=== PATIENT | male | born 1960 | race Caucasian/White ===

== ENCOUNTER 2017-01-10 11:01 | Emergency (ER) | payer MEDICAID ==
[2017-01-10] MEDS ORDERED: methylPREDNISolone Sodium Succinate 125 MG/2 ML SDV IVPUSH ONE (11:57)
[2017-01-10] MEDS ORDERED: diphenhydrAMINE 50 MG/ML SDV IVPUSH ONE (11:57)
--- NOTE | 2017-01-10 12:07 | EDM.PDOC ---
ED HPI GENERAL MEDICAL PROBLEM - General Chief Complaint: Allergic Reaction Stated Complaint: RED ECHEVARRIA & ITCHY ALL OVER Time Seen by Provider: 01/10/17 11:50 Source of Information: Reports: Patient, Family History Limitations: Reports: No Limitations - History of Present Illness INITIAL COMMENTS - FREE TEXT/NARRATIVE: 56-year-old male who is developing some lesions on his right arm last night, now has widespread erythematous hive-like lesions on his extremities and trunk. There are itchy but not painful. He has no history of similar problems, no new medications or foods. No respiratory symptoms, no recent illness. Onset: Sudden (Started 12 hours ago) - Related Data Allergies Allergy/AdvReac Type Severity Reaction Status Date / Time No Known Allergies Allergy Verified 07/31/15 17:03 Home Meds: Home Meds NK [No Known Home Meds] 07/31/15 [History] Past Medical History - Past Health History Medical/Surgical History: Denies Medical/Surgical History - Past Surgical History GI Surgical History: Reports: Other (See Below) Social & Family History - Tobacco Use Smoking Status *Q: Unknown Ever Smoked Years of Tobacco use: 20 Packs/Tins Daily: 1 - Alcohol Use Days Per Week of Alcohol Use: 1 Number of Drinks Per Day: 6 Total Drinks Per Week: 6 - Recreational Drug Use Recreational Drug Use: No ED ROS ALLERGIC REACTION - Review of Systems Review Of Systems: See Below Constitutional: Denies: Fever, Chills HEENT: Reports: No Symptoms Respiratory: Denies: Shortness of Breath, Wheezing Cardiovascular: Denies: Chest Pain GI/Abdominal: Denies: Nausea, Vomiting Skin: Reports: Rash Neurological: Denies: Headache Psychiatric: Reports: No Symptoms ED EXAM GENERAL NO PERIP PULSE - Physical Exam Exam: See Below Exam Limited By: No Limitations General Appearance: Alert, No Apparent Distress Throat/Mouth: Normal Inspection Respiratory/Chest: No Respiratory Distress, Lungs Clear Cardiovascular: Regular Rate, Rhythm Neurological: Alert, Oriented Skin Exam: Other (Patient has widespread erythematous slightly raised blanching lesions on his extremities and trunk) Course - Vital Signs Last Recorded V/S: Last Vital Signs Temp 97.5 F 01/10/17 13:02 Pulse 78 01/10/17 12:49 Resp 14 01/10/17 12:49 BP 126/84 01/10/17 12:49 Pulse Ox 95 01/10/17 12:49 - Orders/Labs/Meds Meds: Medications Discontinued Medications Generic Name Dose Route Start Last Admin Trade Name Keren PRN Reason Stop Dose Admin Diphenhydramine HCl 25 mg 01/10/17 11:57 01/10/17 12:12 Benadryl IVPUSH 01/10/17 11:58 25 mg ONETIME ONE Administration Methylprednisolone Sodium Succinate 125 mg 01/10/17 11:57 01/10/17 12:12 Solu-Medrol IVPUSH 01/10/17 11:58 125 mg ONETIME ONE Administration - Re-Assessments/Exams Free Text/Narrative Re-Assessment/Exam: 01/10/17 12:09 These appear to be a type of urticaria without a known cause. An IV was started and the patient was given 125 mg of Solu-Medrol 25 mg of IV Benadryl. 01/10/17 12:52 Over the course of 40 minutes after the medications, he slowly improved. He'll repeat steroids with 60 mg of prednisone with this evening meal, and 60 mg with his morning meal for the next 2-4 days. He can return anytime if worsening. Departure - Departure Time of Disposition: 13:02 Disposition: Home, Self-Care 01 Condition: Good Clinical Impression: Urticaria - Discharge Information Instructions: Naima, [id number] Referrals: PCP,None [Primary Care Provider] - Forms: ED Department Discharge Care Plan Goals: Take 3 pills of prednisone tonight with supper, then 3 pills with breakfast the next 2-5 days if needed. Occasional oral Benadryl may help as well, and return anytime if worsening such as breathing difficulties or worsening rash despite treatment.
[2017-01-10 12:55] VITALS: BP 126/84
== END 2017-01-10 13:03 | disposition home or self-care (01) ==
LOC: JP.ED 11:01
DX: L50.9 Urticaria, unspecified (principal)
CPT/HCPCS: 96374; 96375; 99283; J1200; J2930